=== PATIENT | female | born 1955 ===

== ENCOUNTER 2019-10-29 06:26 | Day surgery (SDC) | payer BC ==
[~2019-10-29 06:26] MED LIST: Dextrose 5%-0.45% NaCl 1,000 ML IV SCH; Midazolam 1 MG/ML 2 ML SDV ONE; Sodium Chloride 0.9% 10 ML Syringe FLUSH PRN; fentaNYL 100 MCG/2 ML SDV ONE
[2019-10-29] MEDS ORDERED: fentaNYL 100 MCG/2 ML SDV IV ONE ×3 (06:27→07:27)
[2019-10-29] MEDS ORDERED: Midazolam 1 MG/ML 2 ML SDV IV ONE ×5 (06:27→07:35)
[2019-10-29 10:04] VITALS: BP 140/74; PULSE 51
--- NOTE | 2019-10-29 13:28 | OR ---
DATE: 10/29/2019 PROCEDURE: Total colonoscopy. INSTRUMENT USED: PCF-H190DL Olympus video colonoscope. PREMEDICATIONS: Fentanyl 100 mcg intravenous, Versed 3 mg intravenous, and nasal O2 cannula. The procedure was done under pulse oximetry, BP recording, and campus monitor. INDICATION: The patient with previous colonic tubular adenoma. Surveillance colonoscopic examination is done for detection of any polypoid lesions and removal, endoscopic hemostasis therapy if needed. DESCRIPTION OF PROCEDURE: Initial rectal exam was unremarkable. Rigid anoscopy was normal. The colonoscope was passed with ease. Numerous scattered diverticula were noted in the distal left colon along with deformity. The scope was passed with ease up to the ileocecal area. Photographs were taken of the normal-appearing cecum identified by landmarks of appendiceal orifice and double- bulged ileocecal folds. No bleeding was noted from any of the visualized areas at the commencement of the examination. The bowel preparation was found to be adequate, [place] scale 2 in all the regions. No stricture. No vascular ectasia. No large isolated ulcerations seen. No evidence of diffuse inflammatory bowel disease in the form of friability, contact bleeding, or ulcerations. No polyp or tumor mass identified. Probing the proximal sides of folds and flexures using adequate distention and clearing up the stool material, withdrawal of the scope was made, cecum to rectum time over 6 minutes. No bleeding was noted from any of the visualized areas at the completion of examination. IMPRESSION: Diverticulosis. The patient tolerated the procedure well. [facility] /[id number]
== END 2019-10-29 09:47 | disposition home or self-care (01) ==
LOC: DL.ENDO 06:26
PROVIDERS: ATTEND Internal Medicine Gastroenterology
DX: Z12.11 Encounter for screening for malignant neoplasm of colon (principal); K57.30 Diverticulosis of large intestine without perforation or abscess without bleeding; Z86.010 Personal history of colon polyps
CPT/HCPCS: 45378; J2250; J3010; J7042; G0121

== ENCOUNTER 2024-11-28 05:59 | Day surgery (SDC) | payer MEDICARE, BC ==
[2024-11-28] MEDS ORDERED: Midazolam 1 MG/ML 2 ML SDV ONE (06:08)
[2024-11-28] MEDS ORDERED: Midazolam 1 MG/ML 2 ML SDV IV ONE (06:08)
[2024-11-28] MEDS ORDERED: fentaNYL 100 MCG/2 ML SDV ONE (06:08)
[2024-11-28] MEDS ORDERED: fentaNYL 100 MCG/2 ML SDV IV ONE (06:08)
[2024-11-28] MEDS: Dextrose 5%-0.45% NaCl 1,000 ML IV SCH (06:21)
[2024-11-28] MEDS: fentaNYL 100 MCG/2 ML SDV IV ONE ×2 (07:22)
[2024-11-28] MEDS: Midazolam 1 MG/ML 2 ML SDV IV ONE ×6 (07:23→07:33)
[2024-11-28 09:28] VITALS: BP 120/70; PULSE 66
== END 2024-11-28 09:15 | disposition home or self-care (01) ==
LOC: DL.ENDO 05:59
PROVIDERS: ATTEND Internal Medicine Gastroenterology
DX: Z12.11 Encounter for screening for malignant neoplasm of colon (principal); D12.3 Benign neoplasm of transverse colon; K63.89 Other specified diseases of intestine; K57.30 Diverticulosis of large intestine without perforation or abscess without bleeding; Z86.0100 Personal history of colon polyps, unspecified
CPT/HCPCS: J2250; J3010; J7799